=== PATIENT | female | born 1985 | race Caucasian/White ===

== ENCOUNTER 2022-09-01 17:00 | Emergency (ER) | payer OTHER, SELFPAY ==
[2022-09-01 17:05] VITALS: BP 128/99; PULSE 94; RESP 20; TEMP 36.8; O2SAT 98
--- NOTE | 2022-09-01 17:15 | ED.URI ---
HPI - URI/Sore Throat General Chief Complaint: Upper Respiratory Infection Stated Complaint: URI Time Seen by Provider: 09/01/22 17:15 Source: patient Mode of arrival: ambulatory Limitations: no limitations History of Present Illness HPI Narrative: 37-year-old female presents today with complaints of cough, fever, chills, body aches, diarrhea that started on . Patient feels that her cough has not improved since then. She denies any nausea, vomiting. Sick contacts include her son who has the same symptoms and is here being seen today. Related Data Allergies Allergy/AdvReac Type Severity Reaction Status Date / Time Penicillins Allergy Severe Anaphylactic Verified 01/29/18 13:24 Shock Review of Systems Review of Systems: CONSTITUTIONAL: Fever chills malaise. Denies sweats. EYES: Denies visual changes, redness, or discharge. ENT: Rhinorrhea, congestion. Denies sore throat, or otalgia. CARDIOVASCULAR: Denies chest pain, palpitations, or edema. RESPIRATORY: Cough. Denies dyspnea. GASTROINTESTINAL: Diarrhea. Denies abdominal pain, nausea, vomiting. MUSCULOSKELETAL: Myalgia. Denies back pain, joint pain. Exam Narrative: GENERAL: Well-appearing, well-nourished, and in no acute distress. HEAD: Normocephalic, atraumatic. EYES: PERRLA and EOMI. ENT: Nares clear, no rhinorrhea or epistaxis. Mucous membranes moist. Oropharynx without tonsillar hypertrophy exudate or other lesions. NECK: Supple. No adenopathy or masses. No carotid bruits or JVD CHEST: Clear to auscultation. No respiratory distress. No wheezes rales or rhonchi HEART: Regular rate and rhythm. No murmur heard. Normal peripheral pulses. SKIN: Warm, dry, no rash. Course Vital Signs Vital signs: Vital Signs Temperature 98.3 F 09/01/22 17:05 Pulse Rate 94 09/01/22 17:05 Respiratory Rate 20 09/01/22 17:05 Blood Pressure 128/99 H 09/01/22 17:05 Pulse Oximetry 98 09/01/22 17:05 Temperature 98.3 F 09/01/22 17:05 Pulse Rate 94 09/01/22 17:05 Respiratory Rate 20 09/01/22 17:05 Blood Pressure 128/99 H 09/01/22 17:05 Pulse Oximetry 98 09/01/22 17:05 MDM - URI/Sore Throat MDM Narrative Medical decision making narrative: 37-year-old female HPI as noted. Differentials as noted below. Work-up to include COVID, influenza swab. Lungs clear without any rales no indication for chest x-ray at this time. Patient positive for influenza A. Patient afebrile and able to tolerate fluids. Discharge home symptomatic treatment. Differential Diagnosis Differential diagnosis: Likely upper respiratory infection, viral infection, bronchitis and influenza Lab Data Labs: Lab Results 09/01/22 Range/Units 17:15 Influenza A (RT-PCR) Positive (Negative) Influenza B (RT-PCR) Negative (Negative) SARS-CoV-2 RNA (RT-PCR) Negative Discharge Plan Discharge Clinical Impression: Influenza Patient Disposition: Home, Self-Care Condition: Stable Instructions: Antibiotic Form, Influenza (ED) Additional Instructions: You are seen in the emergency department today and diagnosed with influenza A. Please treat symptoms as needed. Tylenol ibuprofen as needed for pain or fever. I have given you prescription for some cough medicine as needed. Also try a teaspoon of honey. Warm salt water gargles for sore throat. Try coolmist humidifier at night to help. Return with any new or worsening concerns. Prescriptions: New benzonatate 100 mg capsule 100 mg PO TID PRN (Reason: cough) Qty: 14 0RF Follow-up/Referrals: PHYSICIAN,PAGINATOR [Primary Care Provider] - Time of Disposition: 18:11
[2022-09-01 17:57] LABS: Influenza A QL RT-PCR Positive (Negative); Influenza B QL RT-PCR Negative (Negative); SARS-CoV-2 RNA PCR Negative
== END 2022-09-01 18:47 | disposition home or self-care (01) ==
LOC: ANHED 18:33
PROVIDERS: Family Medicine; Emergency Provider Nurse Practitioner Family
DX: J10.1 Influenza due to other identified influenza virus with other respiratory manifestations (principal); Z20.822 Contact with and (suspected) exposure to COVID-19
CPT/HCPCS: 87636; 99283

== ENCOUNTER 2023-03-23 15:41 | Emergency (ER) | payer OTHER, SELFPAY ==
--- NOTE | ~2023-03-23 | CT_ITS ---
EXAMINATION: CT abdomen pelvis w con DATE: 03/23/2023 18:58 INDICATION: Abdominal tenderness. Blood in stool. TECHNIQUE: Computed tomography (CT) of the abdomen and pelvis was performed with 100 CC Omnipaque 350 intravenous contrast. Automated exposure control and iterative reconstruction technique were employe d. Exam dose: 719.39 mGy-cm total exam DLP. COMPARISON: None. FINDINGS: 4 mm pleural-based opacity in the anterolateral right lower lobe (series 4 image 21). This is not likely of clinical significance. The lung bases are clear of infiltrate or consolidation. Normal heart size. No pericardial or pleural effusion. No hepatic, splenic, pancreatic, adrenal or suspicious renal space occupying mass lesion is detected. 7.5 mm lower pole right renal cyst. The gallbladder appears unremarkable. No bile duct or pancreatic duct dilatation. No urinary tract calculus or hydroureteronephrosis is detected. The urinary bladder, uterus and adnex al areas are unremarkable. There is a small amount of free fluid in the right posterior cul-de-sac wh ich may be physiologic. Normal caliber of the abdominal aorta. No intraperitoneal or retroperitoneal or pelvic mass lesion or adenopathy or ascites. Normal elongated appendix. No bowel obstruction, bowel wall thickening, pneumatosis or intraperitoneal free air. Small fat-containing umbilical hernia. Osteitis pubis. No suspicious osteolytic or osteoblastic lesions are noted. IMPRESSION: Normal appendix Reviewed, dictated and finalized at [facility]. Reviewed, dictated and finalized at [facility]. IMPRESSION: Normal appendix
[2023-03-23 15:46] VITALS: BP 128/93; PULSE 108; RESP 16; TEMP 36.6; O2SAT 98
[2023-03-23 17:13] LABS: Basophils Absolute Auto 0.1 K/mm3 (0.0-0.1); Basophils Percent Auto 0.7 % (0.2-1.2); Eosinophils Absolute Auto 0.2 K/mm3 (0-0.3); Eosinophils Percent Auto 1.6 % (0-4.4); Hematocrit 45.6 % (37.0-47.0); Hemoglobin 14.8 g/dL (12.0-15.0); Immature Granulocyte Absolute 0.03 K/mm3 (0.00-0.031); Immature Granulocyte Percent A 0.3 % (0-0.5); Lymphocytes Absolute Auto 2.75 K/mm3 (0.9-3.2); Lymphocytes Percent Auto 23.7 % (18.3-44.2); Mean Corpuscular HGB Conc 32.5 g/dl (32-36); Mean Corpuscular Hemoglobin 29.1 pg (26-34); Mean Corpuscular Volume 89.6 fl (80-100); Mean Platelet Volume 10.1 fl (7.4-10.4); Monocytes Absolute Auto 0.7 K/mm3 (0.1-0.6); Monocytes Percent Auto 5.9 % (2.6-8.5); Neutrophils Absolute Auto 7.9 K/mm3 (1.3-6.7); Neutrophils Percent Auto 67.8 % (45.5-73.1); Platelet Count Result 375 k/mm3 (150-375); Red Blood Count 5.09 M/mm3 (4.2-5.4); Red Cell Distribution Width 13.2 % (11.5-14.5); White Blood Count 11.6 K/mm3 (4.5-10.0)
[2023-03-23 17:16] LABS: Appearance Urine Clear (Clear); Bilirubin Urine Negative (Negative); Blood Urine Negative (Negative); Color Urine Yellow (Yellow); Glucose Urine UA Negative (Negative); Ketones Urine Negative (Negative); Leukocyte Esterase Ur Negative LEU/UL (Negative); Nitrate Urine Negative (Negative); Protein Urine Negative (Negative); Specific Grav Ur 1.006 (1.001-1.035); pH Urine 7.5 (5.0-9.0)
[2023-03-23 17:24] LABS: Add Urine Microscopic? NO
[2023-03-23 17:25] LABS: Alanine Aminotransferase 22 U/L (6-35); Albumin Level 4.5 g/dL (3.5-5.1); Alkaline Phosphatase 75 U/L (38-126); Anion Gap 7 mmol/L (8-16); Aspartate Amino Transferase 24 U/L (14-36); Bilirubin,Total 0.5 mg/dL (0.2-1.3); Blood Urea Nitrogen 5 mg/dL (7-17); Calcium 9.5 mg/dL (8.4-10.2); Carbon Dioxide 29 mmol/L (22-30); Chloride 107 mmol/L (98-107); Estimated CRCL calculation 106 ml/min; Estimated Glomerular Filt Rate > 60; Glucose 99 mg/dL (65-110); Lipase 32 U/L (23-300); Potassium 4.1 mmol/L (3.4-5.0); Sodium 143 mmol/L (137-145)
[2023-03-23 17:35] VITALS: BP 123/92; PULSE 80; RESP 18; O2SAT 98
--- NOTE | 2023-03-23 18:09 | ED.GIBLEED ---
HPI - GI Bleed General Chief complaint: GI Bleed Stated complaint: rectal bleeding Time Seen by Provider: 03/23/23 17:56 Source: patient Mode of arrival: ambulatory Limitations: no limitations History of Present Illness HPI Narrative: 38-year-old female presents today with complaints of blood in the stool x4 bowel movements today. Patient denies any history of similar symptoms. Patient denies having hemorrhoids. Patient states she woke up early this morning vomited x1 and had diarrhea but did not pay attention to the stools. After he had woke up she has had 3 more stools with blood. Blood on the toilet paper. Patient denies fevers, body aches, chills. Denies any recent sick contacts or travel. Related Data Allergies Allergy/AdvReac Type Severity Reaction Status Date / Time Penicillins Allergy Severe Anaphylactic Verified 03/23/23 17:38 Shock Review of Systems Review of Systems: All systems reviewed & are unremarkable except as noted in HPI and below ENT: Reports as per HPI Cardiovascular: Cardiovascular: Reports as per HPI Respiratory: Respiratory: Reports as per HPI Gastrointestinal: Gastrointestinal: Reports as per HPI Musculoskeletal: Musculoskeletal: Reports as per HPI Integumentary/Breasts: Skin/Breast: Reports as per HPI Neurologic: Reports as per HPI Psychiatric: Psychiatric: Reports as per HPI [facility] Surgical History Surgical History (Updated 03/24/23 @ 01:40 by Liza Rivera APRN) History of delivery Exam Const: General: cooperative, healthy appearing, comfortable, no acute distress and well developed Orientation/consciousness: patient oriented x3 HENMT: Head: normal to inspection Eyes: General: appearance normal, both eyes and all related structures Resp: Effort & Inspection: normal respiratory effort and able to speak in complete sentences Auscultation: clear to auscultation bilaterally Cardio: Rate: regular rate Rhythm: regular rhythm Heart sounds: S1 normal heart sound present and S2 normal heart sound present GI: GI Palp: Yes Soft to palpation and Yes Tenderness to palpation present (GI) Auscultation: normal bowel sounds Rectal Exam: normal sphincter tone, heme positive stool, No fecal impaction and No hemorrhoids Other: no visual hemorrhoids or no internal hemorrhoids noted on rectal exam. Neuro: General: patient oriented x3 Course Course Emergency Course: Patient with improvement after IVF. Reviewed labs and ct with patient. No episodes of bleeding while in ER. Will discharge home with plan follow up with primary/GI. Return precautions reviewed. Vital Signs Vital signs: Vital Signs Temperature 97.8 F 03/23/23 15:46 Pulse Rate 108 H 03/23/23 15:46 Respiratory Rate 16 03/23/23 15:46 Blood Pressure 128/93 H 03/23/23 15:46 Pulse Oximetry 98 03/23/23 15:46 Temperature 97.8 F 03/23/23 15:46 Pulse Rate 77 03/23/23 19:44 Respiratory Rate 17 03/23/23 19:44 Blood Pressure 108/83 03/23/23 19:44 Pulse Oximetry 99 03/23/23 19:44 MDM - GI Bleed MDM Narrative Medical decision making narrative: 38-year-old female HPI as noted. Differentials to include but not limited to hemorrhoids, GI bleed, gastritis, internal hemorrhoids. CBC and CMP without concerning findings. Urine without blood noted and no signs of UTI. Patient with left abdominal tenderness. CT obtained. CT shows no acute concerns. Due to left abdominal tenderness with some diarrhea will treat for colitis with Cipro and metronidazole. Patient to follow-up with primary care and referred to GI for further management. Strict return precautions reviewed. Patient in agreement and understanding of plan of care. Differential Diagnosis Differential diagnosis: Likely hemorrhoids, infectious diarrhea, gastritis and Lower gastrointestinal hemorrhage Medical Records Attestation: I reviewed the patient's medical records. Lab Data Attestation: I reviewed the griselda
[2023-03-23] MEDS: SODIUM CHLORIDE 0.9% IV 1,000 ML 999 ML IV CONT (18:31)
[2023-03-23 19:44] VITALS: BP 108/83; PULSE 77; RESP 17; O2SAT 99
== END 2023-03-23 20:14 | disposition home or self-care (01) ==
PROVIDERS: Emergency Medicine; Emergency Provider Nurse Practitioner Family
DX: K62.5 Hemorrhage of anus and rectum (principal)
CPT/HCPCS: 36415; 74177; 80053; 81003; 81025; 83690; 85025; 96360; 99284; J7030; Q9967

== ENCOUNTER 2024-08-29 12:59 | Emergency (ER) | payer MEDICAID, SELFPAY ==
--- NOTE | ~2024-08-29 | XR_ITS ---
EXAMINATION: XR sacrum coccyx min 2V DATE: 08/29/2024 15:05 INDICATION: Sacrococcygeal pain. Fall down steps. TECHNIQUE: 3 views of the sacrum and coccyx were obtained. COMPARISON: CT abdomen and pelvis 03/23/23 FINDINGS: Alignment is normal. No fracture. There is mild osteoarthritis of the sacroiliac joints. Th ere is moderate lumbar spondylosis. IMPRESSION: 1. No fracture. Reviewed, dictated and finalized at [facility]. PLUMBER IMPRESSION: 1. No fracture.
--- NOTE | ~2024-08-29 | CT_ITS ---
EXAMINATION: CT thoracic lumbar wo con DATE: 08/29/2024 15:01 INDICATION: Midline back pain post fall down steps TECHNIQUE: Computed tomography (CT) of the thoracic and lumbar spine was performed without intravenou s contrast. Additional sagittal an coronal reconstructions were performed.Automated exposure control and iterative reconstruction technique were employed. The dose-length product was 1464.58 mGy-cm. COMPARISON: CT abdomen pelvis dated 03/23/2023 FINDINGS: Thoracic spine: 10 degrees thoracic dextrocurvature. Sagittal alignment is normal. Unchanged chronic mild likely phys iologic anterior wedging at T11 and T12. Small Schmorl's node along the superior endplates of T8 and T11. No acute fracture. Multilevel minimal to mild disc height loss throughout the thoracic spine. Mu ltilevel mild to moderate thoracic facet osteoarthritis. There is mild neural foraminal stenosis bila terally at T7-T8 through T9-T10. Calcified left upper lobe nodule consistent with old granulomatous d isease. Visualized portion of the heart, aorta and mediastinum are unremarkable. Lumbar spine: Alignment is normal. Vertebral body heights are normal. No acute fracture. Mild disc height loss with mild central canal stenosis at L3-L4 and L4-L5 and without central canal stenosis at L5-S1. Mild doc ateral multilevel lumbar facet osteoarthritis. There is mild neural foraminal stenosis on the left at L3-L4 and bilaterally at L4-L5. Mild to moderate bilateral sacroiliac osteoarthritis. Visualized por tions of bowels are unremarkable including a normal appendix. IMPRESSION: 1. Mild thoracic and lumbar spondylosis with no acute osseous abnormality. Reviewed, dictated and finalized at [facility]. AGE DETERMINER
--- NOTE | ~2024-08-29 | CT_ITS ---
EXAMINATION: CT cervical spine wo con DATE: 08/29/2024 15:01 INDICATION: Neck pain. Fall. TECHNIQUE: Computed tomography (CT) of the cervical spine was performed without intravenous contrast. Automated exposure control and iterative reconstruction technique were employed. The dose-length pro duct was 315.01 mGy-cm. COMPARISON: None FINDINGS: A calcified left lung nodule is consistent with old granulomatous disease. There is kyphosi s of cervical spine. There is mild anterior wedging of T1 vertebral body, likely chronic. There is mi ldly decreased disc height at C4-C5 and C5-C6. The following disc levels are specifically discussed: C2-C3: There is no uncovertebral joint osteoarthritis. There is mild bilateral facet joint osteoarthr itis. There is no neural foraminal stenosis. There is no central canal stenosis. C3-C4: There is no uncovertebral joint osteoarthritis. There is mild right facet joint osteoarthritis . There is no neural foraminal stenosis. There is no central canal stenosis. C4-C5: There is mild right and moderate left uncovertebral joint osteoarthritis. There is mild bilate ral facet joint osteoarthritis. There is mild left neural foraminal stenosis. There is mild central c anal stenosis. C5-C6: There is mild bilateral uncovertebral joint osteoarthritis. There is mild bilateral facet join t osteoarthritis. There is mild bilateral neural foraminal stenosis. There is mild central canal sten osis. C6-C7: There is no uncovertebral joint osteoarthritis. There is mild bilateral facet joint osteoarthr itis. There is no neural foraminal stenosis. There is no central canal stenosis. C7-T1: There is no uncovertebral joint osteoarthritis. There is mild bilateral facet joint osteoarthr itis. There is no neural foraminal stenosis. There is no central canal stenosis. IMPRESSION: 1. No acute fracture. 2. Mild cervical spondylosis. Reviewed, dictated and finalized at [facility]. 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
[2024-08-29 13:13] VITALS: BP 130/74; PULSE 90; RESP 18; TEMP 36.6; O2SAT 100
--- NOTE | 2024-08-29 14:02 | ED_ITS ---
HPI - Fall General Chief Complaint: Fall Stated Complaint: back pain Time Seen by Provider: 08/29/24 13:53 Source: patient and family (young son) Mode of arrival: ambulatory Limitations: no limitations History of Present Illness HPI Narrative: Patient presents with back pain after accidentally missing a step and falling down a couple stairs. She thinks she tumbled and rolled. No loss of consciousness. Not on anticoagulation. She has pain throughout her entire back from the neck down to her coccyx. Also hip pain bilaterally. Has been able to ambulate. Has not yet taken anything for pain. Her left foot is having some tingling throughout it; no other paresthesias. This occurred at approximately 7am and she tried to go to work but was in pain. She has chronic abdominal pain in the setting of gastroparesis; no acute changes/worsening that she can tell. 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 HEAD: Normocephalic, atraumatic. EYES: Non injected, non icteric ENT: Nares clear, no rhinorrhea or epistaxis. NECK: Supple. mild TTP of C spine but not held in fixed position. Able to demonstrate some ROM. CHEST: Speaking in full sentences. No respiratory distress. HEART: Regular rate and rhythm. . ABDOMEN: Soft, nondistended. Back: Mild TTP throughout C/T/L spine but without bony step offs or deformities. EXTREMITIES: Normal range of motion. No lower extremity edema. SKIN: Warm, dry, no rash. NEURO: No focal deficits. Alert and oriented x3. Sensation intact throughout. No abnormal movements appreciated. Speaks clearly without aphasia or dysarthria. PSYCH: Normal mood and affect. Course Vital Signs Vital signs: Vital Signs Temperature 97.9 F 08/29/24 13:13 Pulse Rate 90 08/29/24 13:13 Respiratory Rate 18 08/29/24 13:13 Blood Pressure 130/74 08/29/24 13:13 Pulse Oximetry 100 08/29/24 13:13 Oxygen Delivery Room Air 08/29/24 13:13 Temperature 97.9 F 08/29/24 13:13 Pulse Rate 78 08/29/24 16:54 Respiratory Rate 18 08/29/24 16:54 Blood Pressure 126/78 08/29/24 16:54 Pulse Oximetry 98 08/29/24 16:54 Oxygen Delivery Room Air 08/29/24 13:13 MDM - Fall MDM Narrative Medical decision making narrative: Patient presents with back pain from neck to coccyx after tripping and falling down several steps. No loss of consciousness. In the emergency department they are afebrile with vital signs within normal limits. Reassuring physical exam but will obtain imaging and give analgesic medication. We had discussed multimodal pain management strategy and natural history, that targetting pain and inflammation is necessary to balance rest with maintaining movement. Imaging negative for acute process. Stable for discharge. Advised follow up (gave referral contact information) and gave ED return precautions. Provided Rx for multimodal pain regimen. Differential Diagnosis Differential diagnosis: Likely other (fracture/dislocation; bony/soft tissue contusion) Imaging Data Radiologist's impression: Impressions Cervical Spine CT 08/29/24 15:22 IMPRESSION: 1. No acute fracture. 2. Mild cervical spondylosis. Thoracic/Lumbar Spine CT 08/29/24 15:36 IMPRESSION: 1. Mild thoracic and lumbar spondylosis with no acute osseous abnormality. Sacrum and Coccyx X-Ray 08/29/24 15:38 IMPRESSION: 1. No fracture. Discharge Plan Discharge Clinical Impression: Fall down stairs, Cervical spondylosis, Spondylosis, thoracic, Lumbar spondylosis Patient Disposition: Home, Self-Care Condition: Stable Instructions: Antibiotic Form, Back Pain (ED), Fall Prevention (ED), Neck Pain (ED) Additional Instructions: No broken bones but As we discussed you will likely continue be sore and achy over the next several days due to the fall. Use the multimodal pain regimen to target both pain, inflammation, muscle relaxation, etc. to allow you to balance both rest with maintaining movement and activity. Acetaminophen/Tylenol (maximum 4000 mg per day) is safe to take with NSAIDs (ibuprofen/Motrin) for pain relief. Follow-up with your primary care physician. If you do not have 1 the name of the doctors listed below. Return to the emergency department with any new or worsening symptoms. Return to the ER if you have increased pain in your back, you develop lower extremity weakness/numbness/paralysis, you have numbness or tingling in your private parts, or you are unable to control your ability to urinate/stool. Patient Language: Citizen Of [place] Prescriptions: New lidocaine 4 % adhesive patch,medicated 1 patch topical DAILY PRN (Reason: pain) Qty: 5 0RF methocarbamol 750 mg tablet 750 mg PO HS Qty: 7 0RF ibuprofen 600 mg tablet 600 mg PO TID PRN (Reason: pain) Qty: 30 0RF acetaminophen 500 mg capsule 1,000 mg PO Q6H PRN (Reason: pain) Qty: 30 0RF No Action benzonatate 100 mg capsule 100 mg PO TID PRN (Reason: cough) Qty: 14 0RF metronidazole 500 mg tablet 500 mg PO Q8H Qty: 21 0RF ciprofloxacin HCl 500 mg tablet 500 mg PO Q12H Qty: 14 0RF ondansetron 4 mg tablet,disintegrating 4 mg PO Q8H PRN (Reason: nausea and vomiting) Qty: 7 0RF Follow-up/Referrals: PHYSICIAN,CLINICAL DATA ANALYST [Non-Staff] - Jakob Price MD [Physician] - Stand Alone Forms: Work/School Release IP Time of Disposition: 16:31
[2024-08-29] MEDS: HYDROcodone/acetaminophen (*CRX) 5-325 MG TABLET 1 TAB PO (14:16)
[2024-08-29] MEDS: KETOROLAC 30 MG/ML VIAL (*BKC) 15 MG IM (16:46)
[2024-08-29 16:54] VITALS: BP 126/78; PULSE 78; RESP 18; O2SAT 98
== END 2024-08-29 16:57 | disposition home or self-care (01) ==
PROVIDERS: Emergency Provider Student in an Organized Health Care Education/Training Program; PCP Physician Assistant Medical
DX: S19.9XXA Unspecified injury of neck, initial encounter (principal); S29.9XXA Unspecified injury of thorax, initial encounter; S39.92XA Unspecified injury of lower back, initial encounter; M47.812 Spondylosis without myelopathy or radiculopathy, cervical region; M47.814 Spondylosis without myelopathy or radiculopathy, thoracic region; M47.816 Spondylosis without myelopathy or radiculopathy, lumbar region; K31.84 Gastroparesis; W10.9XXA Fall (on) (from) unspecified stairs and steps, initial encounter
CPT/HCPCS: 72125; 72128; 72131; 72220; 96372; 99284; A9270; J1885

== ENCOUNTER 2025-09-01 12:47 | Emergency (ER) | payer OTHER, SELFPAY ==
[2025-09-01 12:50] VITALS: BP 142/90; PULSE 110; RESP 20; TEMP 36.1; O2SAT 100
[2025-09-01 13:01] VITALS: BP 138/92; PULSE 92; RESP 17; O2SAT 98
--- NOTE | 2025-09-01 13:53 | ED.GENADULT ---
HPI - General Adult General Chief complaint: Recheck/Abnormal Lab/Rx Stated complaint: htn Time Seen by Provider: 09/01/25 13:11 History of Present Illness HPI narrative: 40-year-old female presents to the ER for evaluation of suspected high blood pressure. Patient states he has been experiencing headache for several days, took her blood pressure at her place of employment which showed a reading of 220 over 120. Patient denied dizziness, lightheadedness, nausea, vomiting, altered mental status palpitations, chest pain, of visual changes, lower extremity Related Data Allergies Allergy/AdvReac Type Severity Reaction Status Date / Time Penicillins Allergy Severe Anaphylactic Verified 09/01/25 12:49 Shock Review of Systems Review of Systems: All systems reviewed & are unremarkable except as noted in HPI and below PMFSH Past Medical History Medical History Gastroparesis Surgical History Surgical History History of delivery Social History Social History Living arrangements: with family Additional living arrangements comments: 4 children Occupation/Education: occupation 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 Exam Const: General: healthy appearing and no acute distress Nutritional Appearance: well nourished and obese Resp: Effort & Inspection: normal respiratory effort Auscultation: clear to auscultation bilaterally Cardio: Rate: regular rate Rhythm: regular rhythm Skin: General skin exam: normal color Neuro: General: patient oriented x3, moves all extremities and CN's II-XI intact bilaterally Extrem: General: normal to inspection Psych: Mental Status: mental status grossly normal Affect: normal affect Course Vital Signs Vital signs: Vital Signs Temperature 36.1 C L 09/01/25 12:50 Pulse Rate 110 H 09/01/25 12:50 Respiratory Rate 20 09/01/25 12:50 Blood Pressure 142/90 H 09/01/25 12:50 Pulse Oximetry 100 09/01/25 12:50 Oxygen Delivery Room Air 09/01/25 12:50 Temperature 36.1 C L 09/01/25 12:50 Pulse Rate 92 09/01/25 13:01 Respiratory Rate 17 09/01/25 13:01 Blood Pressure 138/92 H 09/01/25 13:01 Pulse Oximetry 98 09/01/25 13:01 Oxygen Delivery Room Air 09/01/25 12:50 MDM MDM Narrative Medical decision making narrative: In summary: 40-year-old female presents ER complaining elevated blood pressure readings will work. The BP readings here were 140/90. Patient reported mild headache no other symptoms. Patient refused further evaluation, stated she is getting a appointment with her PCP in 3 days. Instructed patient to monitor BP readings over the next 3 days. Plans discharge patient home in stable condition. Differential Diagnosis Differential Diagnosis: Hypertension, glomerulonephritis, stroke, hyperthyroidism, anxiety Discharge Plan Discharge Clinical Impression: Elevated BP reading w/ no diagnosis of HTN Patient Disposition: Home Condition: Stable Instructions: Antibiotic Form, Hypertension (ED) Patient Language: Indonesian Prescriptions: No Action lidocaine 4 % adhesive patch,medicated 1 patch topical DAILY PRN (Reason: pain) Qty: 5 0RF methocarbamol 750 mg tablet 750 mg PO HS Qty: 7 0RF ibuprofen 600 mg tablet 600 mg PO TID PRN (Reason: pain) Qty: 30 0RF acetaminophen 500 mg capsule 1,000 mg PO Q6H PRN (Reason: pain) Qty: 30 0RF benzonatate 100 mg capsule 100 mg PO TID PRN (Reason: cough) Qty: 14 0RF metronidazole 500 mg tablet 500 mg PO Q8H Qty: 21 0RF ciprofloxacin HCl 500 mg tablet 500 mg PO Q12H Qty: 14 0RF ondansetron 4 mg tablet,disintegrating 4 mg PO Q8H PRN (Reason: nausea and vomiting) Qty: 7 0RF Follow-up/Referrals: Octavio,BERTIN Chavira [Primary Care Provider, Unknown] Stand Alone Forms: Work/School Release IP Time of Disposition: 13:58
[2025-09-01 14:03] VITALS: BP 131/99; PULSE 82; RESP 18; O2SAT 99
== END 2025-09-01 14:05 | disposition home or self-care (01) ==
PROVIDERS: Emergency Provider Nurse Practitioner Family; PCP Physician Assistant Medical
DX: R03.0 Elevated blood-pressure reading, without diagnosis of hypertension (principal); K31.84 Gastroparesis
CPT/HCPCS: 99281